=== PATIENT | female | born 1960 | race Asian ===

== ENCOUNTER 2017-03-29 18:04 | Inpatient (IN) | payer OTHER ==
[~2017-03-29] VITALS: Ht 147.3 cm; Wt 57.4 kg
[~2017-03-29 18:04] MED LIST: CIPRO500 MG PO; ENALAPRIL MALE2.5 MG; LAC PO
[2017-03-29 18:14] VITALS: Ht 147.3 cm; Wt 57.4 kg
[2017-03-29 20:57] LABS: CALCIUM 9.2 mg/dL (8.5-10.1); CARBON DIOXIDE 25.8 mmol/L (21-32); CREATININE SERUM 1.1 mg/dL (0.6-1.0); POTASSIUM SERUM 3.9 mmol/L (3.5-5.1)
[2017-03-29 21:13] LABS: UA SPECIFIC GRAVITY 1.025 (1.005-1.035); microscopic required? YES; urine erythrocyte 2+ (NEGATIVE)
[2017-03-29 21:13] LABS: ALBUMIN 3.9 g/dL (3.4-5.0); BILIRUBIN TOTAL 0.3 mg/dL (0.20-1.00); T4(THYROXINE) 8.6 ug/dL (4.7-13.3); TOTAL PROTEIN, SERUM 8.2 g/dL (6.4-8.2)
[2017-03-29 21:45] LABS: BASOPHIL % 0.2 % (0-2); PLATELET COUNT 319 x10^3mcL (130-400); RED CELL DISTRIBUTION WIDTH 13.9 % (11.5-14.5)
[2017-03-29] MEDS ORDERED: MULTI-VITAMINS1 TAB PO (22:43)
[2017-03-29] MEDS ORDERED: ENALAPRIL MALE2.5 MG PO (22:44)
[2017-03-30] VITALS (7 sets, daily range): BP systolic 98–131; BP diastolic 60–75
[2017-03-30 02:49] LABS: CHOLESTEROL/HDL RATIO 4.5; PHOSPHOROUS 3.8 mg/dL (2.5-4.9)
[2017-03-30 07:21] LABS: CALCIUM 9.1 mg/dL (8.5-10.1); CARBON DIOXIDE 24.9 mmol/L (21-32); CHLORIDE SERUM 108 mmol/L (98-107); GFR1 > 60 mL/min; GLUCOSE SERUM 121 mg/dL (74-106); POTASSIUM SERUM 4.2 mmol/L (3.5-5.1); SODIUM SERUM 144 mmol/L (136-145)
[2017-03-30 08:52] LABS: BASOPHIL % 0.5 % (0-2); PLATELET COUNT 281 x10^3mcL (130-400); RED CELL DISTRIBUTION WIDTH 14.1 % (11.5-14.5)
[2017-03-30 15:44] LABS: AMPHETAMINE QUAL UR NONE DETECTED (NEG <=1000)
[2017-03-31 05:19] VITALS: BP 101/57
[2017-03-31 09:25] VITALS: BP 123/73
[2017-03-31] MEDS ORDERED: NORCO1 TA2 PO (11:53)
[2017-03-31 12:36] VITALS: BP 108/72
[2017-03-31 15:36] VITALS: BP 108/72
== END 2017-03-31 16:37 | disposition home or self-care (01) | DRG 417 ==
LOC: ED 18:04 → DU 03-30 02:08
PROVIDERS: Emergency Medicine; Family Medicine; Surgery
PROC: 0FT44ZZ Resection of Gallbladder, Percutaneous Endoscopic Approach (ICD-10-PCS; principal; 2017-03-30 09:00)
DX: K80.00 Calculus of gallbladder with acute cholecystitis without obstruction (principal); K85.10 Biliary acute pancreatitis without necrosis or infection; N17.0 Acute kidney failure with tubular necrosis; Q87.81 Alport syndrome; K76.0 Fatty (change of) liver, not elsewhere classified; E78.00 Pure hypercholesterolemia, unspecified; R31.9 Hematuria, unspecified; R73.03 Prediabetes; Z83.3 Family history of diabetes mellitus; Z82.49 Family history of ischemic heart disease and other diseases of the circulatory system
CPT/HCPCS: 83880; 94150; G0378; J0690; J1170; J2405; J2704; J2710; J3010; J3490; J7030; Q0092

== ENCOUNTER 2017-10-17 19:22 | Emergency (ER) | payer OTHER ==
[~2017-10-17] VITALS: Ht 147.3 cm; Wt 59.5 kg
[~2017-10-17 19:22] MED LIST changes: +ENALAPRIL MALE2.5 MG PO; +MULTI-VITAMINS1 TAB PO; +NORCO1 TA2 PO
[2017-10-17 20:44] VITALS: BP 143/90; Ht 147.3 cm; Wt 59.5 kg
== END 2017-10-17 22:03 | disposition home or self-care (01) ==
LOC: ED 19:22
DX: L50.9 Urticaria, unspecified (principal); T78.40XA Allergy, unspecified, initial encounter; X58.XXXA Exposure to other specified factors, initial encounter
CPT/HCPCS: J7512